=== PATIENT | male | born 1945 | race Caucasian/White ===

== ENCOUNTER → 2020-06-12 | Outpatient (CLI) | payer MEDICARE ==
--- NOTE | 2020-06-12 14:46 | XR ---
Lumbar spine HISTORY: Fracture of lumbar vertebra 3 views of the lumbar spine There is a mild spinal curvature. There are calcifications within the splenic artery, also in the rig ht upper quadrant which are indeterminate. There is multilevel spondylosis. Loss of disc height is pr esent at intervertebral levels especially at L2-3, L1-2, L3-4 greater than L5-S1. Sclerosis present i n the posterior elements. Atherosclerotic calcifications present in the aortoiliac distribution. Lumb ar vertebral bodies show preserved height. Bone mineralization is reduced. IMPRESSION: Degenerative disc disease, facet arthropathy, mild spinal curvature. Additional findings above. Osteopenia.
== END | disposition home or self-care (01) ==
LOC: RADXRMAIN 13:33
PROVIDERS: ATTEND Family Medicine
DX: M51.36 Other intervertebral disc degeneration, lumbar region (principal); M47.816 Spondylosis without myelopathy or radiculopathy, lumbar region; M43.8X6 Other specified deforming dorsopathies, lumbar region; M53.86 Other specified dorsopathies, lumbar region; M53.87 Other specified dorsopathies, lumbosacral region; M85.88 Other specified disorders of bone density and structure, other site
CPT/HCPCS: 72100

== ENCOUNTER 2021-05-31 08:41 | Day surgery (SDC) | payer MEDICARE ==
[2021-05-30 08:59] VITALS: BMI 29.0
--- NOTE | 2021-05-30 19:04 | P.HPIHPCON ---
History of Present Illness H&P Date: 05/30/21 This is a 76-year-old male with history of Levon 7 (4+3) prostate cancer, he elected to proceed with external beam radiation therapy. Option of SpaceOR placement was discussed with him. Discussed with him risk which includes but not limited to bleeding, infection, rectal perforation. Discussed with him the purpose of the spaceOR placement is to reduce the rectal toxicity from radiation. Discussed that he could still develop rectal toxicity from radiation even with SpaceOR placement . He understood all the risk and agreed to proceed Prostate size 28 g. Consent for Procedure: I have explained the operation/procedure to the patient, including the risks, benefits, side effects, alternative therapies (including not receiving the proposed treatment or service), the likelihood of the patient achieving his/her goals, and potential recuperation problems for the procedure/sedation/analgesia, as well as any blood products, if indicated. I also explained to the patient the risks, benefits and side effects of the alternatives, as well as the risks related to not receiving the proposed procedure, care, treatment, or services. Past Medical History Past Medical History: Cancer, Hyperlipidemia Additional Past Medical History / Comment(s): Hx skin cancer 3-4 yrs ago. Current Prostate Cancer. Hx "fractured L1-L2 in 2017, healed on it's own." History of Any Multi-Drug Resistant Organisms: None Reported Past Surgical History: Hernia Repair Additional Past Surgical History / Comment(s): Cancerous skin lesion removed, colonoscopy, Lasik eye surgery, bilateral cataracts removed with lens implants, wisdom teeth extracted. Past Anesthesia/Blood Transfusion Reactions: No Reported Reaction Past Psychological History: No Psychological Hx Reported Smoking Status: Former smoker Past Alcohol Use History: None Reported Additional Past Alcohol Use History / Comment(s): Quit smoking 40 yrs ago. Past Drug Use History: None Reported - Past Family History Sister(s) Family Medical History: Cancer Additional Family Medical History / Comment(s): Breast cancer. Medications and Allergies Home Medications Medication Instructions Recorded Confirmed Type Cholecalciferol [Vitamin D3 (25 50 mcg PO HS 05/30/21 05/30/21 History Mcg = 1000 Iu)] L.acidoph,Paracasei, B.lactis 1 each PO HS 05/30/21 05/30/21 History [Probiotic] Simvastatin 5 mg PO HS 10/13/21 10/13/21 History Allergies Allergy/AdvReac Type Severity Reaction Status Date / Time No Known Allergies Allergy Verified 05/30/21 08:45
[~2021-05-31 08:41] MED LIST: LACTATED RINGERS 1,000 ML IV SCH
[2021-05-31 09:04] VITALS: TEMP 97
[2021-05-31] MEDS ORDERED: LACTATED RINGERS 1,000 ML IV ONE (09:04)
[2021-05-31] MEDS ORDERED: ONDANSETRON 4 MG/2 ML VIAL ONE (09:15)
[2021-05-31] MEDS ORDERED: ONDANSETRON 4 MG/2 ML VIAL IVP ONE (09:18)
[2021-05-31] MEDS ORDERED: DEXAMETHASONE SOD PHOSPHATE 4 MG/ML 1 ML VIAL IVP ONE (09:19)
[2021-05-31] MEDS ORDERED: MIDAZOLAM 2 MG/2 ML VIAL ONE (10:54)
[2021-05-31] MEDS ORDERED: fentaNYL (PF) 50 MCG/ML 2 ML AMP ONE (10:54)
[2021-05-31] MEDS ORDERED: LIDOCAINE 2% INJ 20 MG/ML SQ ONE (11:17)
[2021-05-31 11:36] VITALS: RESP 16
--- NOTE | 2021-05-31 11:38 | P.OP ---
Date of Procedure: 05/31/21 Preoperative Diagnosis: Adenocarcinoma of the prostate Postoperative Diagnosis: Same Procedure(s) Performed: SpaceOAR Implant Anesthesia: MAC Surgeon: Smith Collier Estimated Blood Loss (ml): 10 IV fluids (ml): 400 Pathology: none sent Condition: stable Disposition: PACU Indications for Procedure: The patient is a 76-year-old white male with recently diagnosed prostate cancer. Biopsies revealed a single focus of Rumney 7 (4+3) adenocarcinoma. He is being treated with radiation therapy. He now comes for SpaceOAR implant to reduce rectal toxicity resulting from radiation therapy. Operative Findings: 7-10 mm of separation achieved between prostate and rectum. Description of Procedure: The patient was taken to the operating room and placed in the dorsolithotomy position, with his legs supported in Brandon stirrups. The external genitalia was prepped and draped sterilely. The Bruel and Kjaer transrectal ultrasound probe was placed intrarectally. The prostate was imaged. The probe was then placed within the stabilizing stand. A spinal needle was advanced under ultrasonic guidance to the level of the urogenital diaphragm, and lidocaine was used to infiltrate the tissues as the needle was withdrawn. Next, the SpaceOAR needle was passed through the midline of the perineum, 1-2 cm anterior to the anal opening. The needle was slowly advanced under ultrasonic guidance until the needle tip was located within the fat plane between the prostate and rectum, at the level of the mid prostate gland. The needle was confirmed to be midline on the axial imaging. A small amount of normal saline was injected for hydrodissection. Next, the SpaceOAR components were mixed and loaded into the Y connector per protocol. The Y connector was then connected to the needle, and the components were injected slowly over a course of approximately 12 seconds. A total of 10 ml was injected. Significant distance was created between the prostate and rectum, as desired. It should be noted that at no point was there any concern of rectal perforation. The needle was withdrawn, as well as the transrectal ultrasound probe, and the procedure was terminated. The patient tolerated the procedure well and was taken to the recovery room in stable condition.
[2021-05-31 12:00] VITALS: BP 122/74; PULSE 88
== END 2021-05-31 12:13 | disposition home or self-care (01) ==
LOC: OR 08:41
PROVIDERS: ATTEND Urology
DX: C61 Malignant neoplasm of prostate (principal); E78.5 Hyperlipidemia, unspecified; Z85.828 Personal history of other malignant neoplasm of skin; Z98.890 Other specified postprocedural states; Z98.42 Cataract extraction status, left eye; Z98.41 Cataract extraction status, right eye; Z96.1 Presence of intraocular lens; Z87.891 Personal history of nicotine dependence; Z80.3 Family history of malignant neoplasm of breast; Z79.899 Other long term (current) drug therapy; K21.9 Gastro-esophageal reflux disease without esophagitis
CPT/HCPCS: 55874; C1889; J2001; J2250; J1100; J0690; J2405; J3010

== ENCOUNTER → 2021-08-17 | Outpatient (CLI) | payer MEDICARE | END | disposition home or self-care (01) | LOC: LABWHC1 09:58 | PROVIDERS: ATTEND Radiology Radiation Oncology | DX: C61 Malignant neoplasm of prostate (principal); Z85.828 Personal history of other malignant neoplasm of skin | CPT/HCPCS: 36415; 84153 ==

== ENCOUNTER → 2021-12-24 | Outpatient (CLI) | payer MEDICARE | END | disposition home or self-care (01) | LOC: LABWHC1 13:29 | PROVIDERS: ATTEND Radiology Radiation Oncology | DX: C61 Malignant neoplasm of prostate (principal); Z85.828 Personal history of other malignant neoplasm of skin | CPT/HCPCS: 36415; 84153 ==

== ENCOUNTER → 2022-06-25 | Outpatient (CLI) | payer MEDICARE | END | disposition home or self-care (01) | LOC: LABWHC1 14:17 | PROVIDERS: ATTEND Radiology Radiation Oncology | DX: C61 Malignant neoplasm of prostate (principal); Z92.3 Personal history of irradiation; Z85.828 Personal history of other malignant neoplasm of skin | CPT/HCPCS: 36415; 84153 ==

== ENCOUNTER → 2022-12-25 | Outpatient (CLI) | payer MEDICARE | END | disposition home or self-care (01) | LOC: LABWHC1 10:44 | PROVIDERS: ATTEND Radiology Radiation Oncology | DX: C61 Malignant neoplasm of prostate (principal); R35.1 Nocturia; Z92.3 Personal history of irradiation; Z85.828 Personal history of other malignant neoplasm of skin | CPT/HCPCS: 36415; 84153 ==

== ENCOUNTER → 2023-02-17 | Outpatient (CLI) | payer MEDICARE ==
--- NOTE | 2023-02-20 09:03 | MR ---
EXAMINATION TYPE: MR knee RT wo con DATE OF EXAM: 02/17/2023 7:31 AM CLINICAL INDICATION:Male, 78 years old with history of M25.561 right knee pain; , Right knee pain due to injury COMPARISON: Radiographs from 02/11/2023 TECHNIQUE: Multi planar, multi sequence imaging was performed of the knee including: Triplane proton density fat-saturated images and T1-weighted imaging. No Gadolinium was given. IV Contrast: cc (none if empty) FINDINGS: Medial meniscus: Intact, high PD signal that does not reach these articular surface compatible wi th myxoid degeneration. Medial femorotibial cartilage: Intact without full-thickness defect. Mild thinning noted on the t ibial plateau. Medial collateral ligament: Intact Lateral meniscus: Thickened increased PD signal within the anterior horn extending to the root. F ree edge fraying of the body. Lateral femorotibial cartilage: Intact, without full-thickness defect mild thinning of the tibial plateau cartilage. Lateral collateral ligament complex: Intact Patellofemoral alignment: Normal Patellofemoral cartilage: Intact, no full-thickness defects. Extensor mechanism: Intact. Joint/bursal fluid: High PD signal within the Hoffa fat pad. Muscles/tendons: The patellar tendon, quadriceps tendon, IT band, pes anserinus tendons, semimembrano ian tendon, popliteus tendon, and biceps femoris tendon are all within normal limits. Bone marrow: Normal. Anterior cruciate ligament: Intrinsic high PD signal seen within the fibers with scattered cystic areas present. Posterior cruciate ligament: Intact. Soft tissues: Unremarkable. IMPRESSION: 1. Intrasubstance partial tear of the ACL. 2. Suspected complex tear of the anterior horn of the lateral meniscus near the root. 3. Mucoid degeneration of the anterior horn and root of the lateral meniscus. 4. High PD signal within Hoffa's fat pad correlate for underlying impingement
== END | disposition home or self-care (01) ==
LOC: RADMRIMAIN 06:47
PROVIDERS: ATTEND Orthopaedic Surgery
DX: S83.281A Other tear of lateral meniscus, current injury, right knee, initial encounter (principal); M17.11 Unilateral primary osteoarthritis, right knee

== ENCOUNTER → 2023-03-21 | Outpatient (CLI) | payer MEDICARE | END | disposition home or self-care (01) | LOC: LABWHC1 07:47 | PROVIDERS: ATTEND Orthopaedic Surgery | DX: Z01.812 Encounter for preprocedural laboratory examination (principal); M23.91 Unspecified internal derangement of right knee; I49.3 Ventricular premature depolarization | CPT/HCPCS: 36415; 85025; 93005 ==

== ENCOUNTER → 2023-03-26 | Outpatient (CLI) | payer MEDICARE ==
[2023-03-26 18:05] LABS: Basophils # (A) 0.07 X 10*3/uL (0.00-0.10); Eosinophils # (A) 0.26 X 10*3/uL (0.04-0.35); Eosinophils % (A) 3.8 %; HCT 44.9 % (39.6-50.0); HGB 14.8 d/dL (13.0-17.0); Immature Platelet Fraction 26.1 % (1.1-6.1); Lymphocytes # (A) 1.32 X 10*3/uL (0.90-5.00); Lymphocytes % (A) 19.4 %; MCH 29.1 pg (27.0-32.0); MCV 88.4 FL (80.0-97.0); Mean Platelet Volume 14.3 FL (9.5-12.2); Monocytes # (A) 0.59 X 10*3/uL (0.20-1.00); Monocytes % (A) 8.7 %; NRBC Per 100 WBC 0 X 10*3/uL (0.00-0.01); Neutrophils # (A) 4.53 X 10*3/uL (1.80-7.70); Neutrophils % (A) 66.7 %; RBC 5.08 X 10*6/uL (4.40-5.60); RDW 13.9 % (11.5-14.5)
== END | disposition home or self-care (01) ==
LOC: LABPAT 11:06
PROVIDERS: ATTEND Orthopaedic Surgery
DX: Z01.812 Encounter for preprocedural laboratory examination (principal); M23.91 Unspecified internal derangement of right knee
CPT/HCPCS: 85025

== ENCOUNTER 2023-04-03 08:02 | Day surgery (SDC) | payer MEDICARE ==
[2023-03-27 10:33] VITALS: BMI 28.3
--- NOTE | 2023-04-02 14:11 | HP ---
HISTORY AND PHYSICAL DATE OF SCHEDULED SURGERY: 04/03/2023. HISTORY OF PRESENT ILLNESS: Nacho Perkins is an 78-year-old gentleman seen with progressive right knee pain. We discussed options. He elected to proceed with right knee arthroscopy. Consent was obtained. Medical clearance was provided. PAST MEDICAL HISTORY: Hyperlipidemia. PAST SURGICAL HISTORY: Herniorrhaphy. DAILY MEDICATIONS: 1. Simvastatin. 2. Flonase. ALLERGIES: None. SOCIAL HISTORY: Denies tobacco use. PHYSICAL EVALUATION OF THE RIGHT KNEE: Range of motion 0 to 130 degrees. Mild effusion. Tenderness along the medial and lateral joint lines. Positive medial Salvatore's. Positive lateral Salvatore's. Ligaments stable. Hip rotation without pain. Distal neurovascular exam is intact. RADIOGRAPHS: Radiographs of the right knee revealed mild osteoarthritis. MRI right knee revealed lateral meniscal tear, partial ACL tear. IMPRESSION: 1. Internal derangement of right knee with lateral meniscal tear and partial ACL tear. 2. Hyperlipidemia. PLAN: Right knee arthroscopy with partial lateral meniscectomy and debridement. MMODL / IJN: [id number] /
[~2023-04-03 08:02] MED LIST changes: +DEXAMETHASONE SOD PHOSPHATE 4 MG/ML 1 ML VIAL IV ONE; +HYDROmorphone 0.5 MG/0.5 ML SYRINGE IVP PRN; +ONDANSETRON 4 MG/2 ML VIAL IVP ONE
[2023-04-03] MEDS ORDERED: LIDOCAINE 1% (10MG/ML) FOR IV START INTRADERMA ONE (08:40)
[2023-04-03] MEDS ORDERED: fentaNYL (PF) 50 MCG/ML 2 ML AMP ONE (09:54)
[2023-04-03] MEDS ORDERED: PROPOFOL 10 MG/ML 20 ML VIAL IV ONE (09:54)
[2023-04-03] MEDS ORDERED: PHENYLEPHRINE-0.9% NACL SYG 1,000 MCG/10 ML SYRINGE ONE (09:54)
[2023-04-03] MEDS ORDERED: LIDOCAINE 2% INJ 20 MG/ML (2 ML VIAL) ONE (09:54)
[2023-04-03] MEDS ORDERED: MIDAZOLAM 2 MG/2 ML VIAL ONE (09:54)
[2023-04-03] MEDS ORDERED: BUPIVACAINE (PF) 0.25% 10 ML VIAL MISCELLANE ONE ×2 (09:59→10:25)
--- NOTE | 2023-04-03 10:40 | P.OP ---
Date of Procedure: 04/03/23 Preoperative Diagnosis: Internal derangement right knee Postoperative Diagnosis: 1. Tear medial and lateral meniscus right knee 2. Grade 4 chondromalacia medial femoral condyle right knee 3. Reactive synovitis medial, lateral and suprapatellar compartments right knee Procedure(s) Performed: 1. Arthroscopic partial medial and lateral meniscectomy right knee 2. Arthroscopic microfracture medial femoral condyle right knee 3. Arthroscopic partial synovectomy medial, lateral and suprapatellar compartments right knee Anesthesia: GETA Surgeon: Jose Enrique Ga Estimated Blood Loss (ml): 7 Pathology: none sent Condition: stable Disposition: PACU Indications for Procedure: 78-year-old gentleman seen with progressive right knee pain. After treatment options were discussed, he elected to proceed with arthroscopy. Operative Findings: See description of procedure Description of Procedure: Patient was taken to the operative suite. Patient underwent a general anesthetic by the department of anesthesia. Patient was given preoperative antibiotics. The right lower extremity was placed in a well-padded arthroscopic leg koo. The right leg was prepped and draped in the normal sterile orthopedic fashion. A lateral parapatellar and suprapatellar incision was made. Trochars were inserted. Arthroscopy was initiated. Suprapatellar pouch revealed diffuse thick reactive synovitis. The patellofemoral joint appeared to articulate congruently. There was grade 1 chondromalacia of the patella without significant osteochondral tears. The scope was guided into the medial gutter. No loose bodies or plica were then applied. The scope was then guided into the medial compartment. A medial parapatellar incision was made. Trocar inserted followed by probe. There was a radial tear posterior horn medial meniscus. There was an area of grade 3/4 chondral malacia along the lateral aspect of the medial femoral condyle with some osteochondral flap tears. There was thick reactive synovitis anteriorly. I performed a partial medial meniscectomy getting down to stable meniscal tissue. I performed a partial synovectomy decompressing the reactive synovitis anteriorly. I performed a chondroplasty of the medial femoral condyle getting down to stable osteochondral tissue. I did note a area of grade 4 chondromalacia measuring about 8 mm along the center area of the chondromalacia of the medial femoral condyle. I entered used a microfracture awl and performed a microfracture to the area of exposed bone along the medial femoral condyle penetrating the bone with resultant bleeding at the microfracture site. I probed the residual meniscus and it was stable. There was good decompression of the synovitis. The residual osteochondral surface was stable. Scope and probe were then guided into the intercondylar notch. Cruciates were identified, probed and found to be stable. The scope and probe were then guided into lateral compartment. Lateral meniscus was probed and was found to be stable. There was no significant chondromalacia.. There was thick reactive synovitis present along the anterior aspect of the lateral compartment. I introduced a motorized shaver and performed a partial synovectom y. There was good decompression of the synovitis. The scope was in guided back into the suprapatellar compartment. I introduced a motorized shaver into the suprapatellar compartment. I debrided some piecemeal fragments of meniscus I encountered and performed a partial synovectomy. The shaver was removed. There was good decompression of the synovitis. I took one more look around the entire knee, no residual debris. Instruments were now removed from the joint. The joint was infiltrated with .25% Marcaine. Steri-Strips were applied to the portal sites. Sterile dressings were applied. The patient was placed into a LENORA hose. No tourniquet was utilized. The patient was awakened, transferred to a bed and taken to recovery stable satisfactory condition.
[2023-04-03 10:59] VITALS: TEMP 96.8
--- NOTE | 2023-04-03 11:34 | P.OP ---
Date of Procedure: 04/03/23 Preoperative Diagnosis: Internal derangement right knee Postoperative Diagnosis: 1. Tear medial lateral meniscus right knee 2. Grade 4 chondromalacia medial femoral condyle right knee 3. Grade 4 chondromalacia medial femoral sulcus right knee 4. Reactive synovitis medial, lateral and suprapatellar compartments right knee Procedure(s) Performed: 1. Arthroscopic partial medial and lateral meniscectomy right knee 2. Arthroscopic microfracture medial femoral condyle right knee 3. Arthroscopic microfracture medial femoral sulcus right knee 4. Arthroscopic partial synovectomy medial, lateral and suprapatellar compartments right knee Anesthesia: CHEYENNEA, local Surgeon: Jose Enrique Ga Estimated Blood Loss (ml): 7 Pathology: none sent Condition: stable Disposition: PACU Indications for Procedure: 78-year-old patient seen with progressive right knee pain. After having treatment options discussed, he elected to proceed with arthroscopy. Operative Findings: See description of procedure Description of Procedure: Patient was taken to the operative suite. Patient underwent a general anesthetic by the department of anesthesia. Patient was given preoperative antibiotics. The right lower extremity was placed in a well-padded arthroscopic leg koo. The right leg was prepped and draped in the normal sterile orthopedic fashion. A lateral parapatellar and suprapatellar incision was made. Trochars were inserted. Arthroscopy was initiated. Suprapatellar pouch revealed diffuse thick reactive synovitis. The patellofemoral joint appeared to articulate congruently. There was grade 3 chondromalacia the patella and one area of grade 4 chondral malacia of the medial femoral sulcus with some exposed bone present. The scope was guided into the medial gutter. No loose bodies or plica were identified The scope was then guided into the medial compartment. A medial parapatellar incision was made. Trocar inserted followed by probe. There was a complex tear involving the posterior horn medial meniscus. There was an area of grade 4 chondromalacia involving the weightbearing surface medial femoral condyle with exposed bone measuring about 1 x 2 cm. There was thick reactive synovitis anteriorly. I performed a partial medial meniscectomy getting down to stable meniscal tissue. I performed a partial synovectomy decompressing the thick reactive synovitis anteriorly. I now introduced a microfracture awl and I performed a microfracture to the area of exposed bone penetrating the bone with resultant bleeding at the microfracture site. The residual meniscus was probed and was found to be stable. There was good decompression of the synovitis. The residual osteochondral surface was stable. Scope and probe were then guided into the intercondylar notch. Cruciates were identified, probed and found to be stable. The scope and probe were then guided into lateral compartment. There was a radial tear mid body lateral meniscus. There was thick reactive synovitis anteriorly. There was no significant chondromalacia present. I performed a partial lateral meniscectomy getting down to stable meniscal tissue. I performed a partial synovectomy decompressing reactive synovitis. The residual meniscus was stable. There was good decompression of the synovitis. The scope was in guided back into the suprapatellar compartment. I introduced a motorized shaver into the suprapatellar compartment. I debrided some piecemeal fragments of meniscus I encountered. I performed a partial synovectomy. I now introduced a microfracture awl and performed a microfracture to that area of exposed bone m edial femoral sulcus penetrating the bone with resultant bleeding at the microfracture site. I now took one more look around the entire knee, no residual debris. Instruments were now removed from the joint. The joint was infiltrated with .25% Marcaine. Steri-Strips were applied to the portal sites. Sterile dressings were applied. The patient was placed into a LENORA hose. No tourniquet was utilized. The patient was awakened, transferred to a bed and taken to recovery stable satisfactory condition.
[2023-04-03 12:04] VITALS: RESP 17
[2023-04-03 12:05] VITALS: BP 148/92; PULSE 69
[2023-04-03] MEDS ORDERED: traMADol 50 MG TAB ONE (12:06)
[2023-04-03] MEDS ORDERED: traMADol 50 MG TAB PO ONE ×2 (12:07)
== END 2023-04-03 13:09 | disposition home or self-care (01) ==
LOC: OR 08:02
PROVIDERS: ATTEND Orthopaedic Surgery
DX: S83.241A Other tear of medial meniscus, current injury, right knee, initial encounter (principal); S83.281A Other tear of lateral meniscus, current injury, right knee, initial encounter; M65.9 Synovitis and tenosynovitis, unspecified; M22.41 Chondromalacia patellae, right knee; M23.91 Unspecified internal derangement of right knee; E78.5 Hyperlipidemia, unspecified; Z98.890 Other specified postprocedural states; Z79.899 Other long term (current) drug therapy; X58.XXXA Exposure to other specified factors, initial encounter
CPT/HCPCS: 29879; 29881; J2250; J1100; J0690; J2405; J3010; J2704; J2001; J2371; J0665

== ENCOUNTER → 2025-03-04 | Outpatient (CLI) | payer MEDICARE ==
[2025-03-04 15:47] LABS: Immature Platelet Fraction 27.2 % (1.1-6.1)
== END | disposition home or self-care (01) ==
LOC: LABWHC1 11:14
PROVIDERS: ATTEND Family Medicine
DX: D69.49 Other primary thrombocytopenia (principal)
CPT/HCPCS: 36415; 85049

== ENCOUNTER → 2025-03-11 | Outpatient (CLI) | payer MEDICARE ==
[2025-03-11 15:35] LABS: Platelet Count 74 k/uL (150-450)
== END | disposition home or self-care (01) ==
LOC: LABWHC1 13:52
PROVIDERS: ATTEND Family Medicine
DX: D69.49 Other primary thrombocytopenia (principal)
CPT/HCPCS: 36415; 85049